=== PATIENT | female | born 1965 | race Caucasian/White ===

== ENCOUNTER 2020-10-18 19:39 | Emergency (ER) | payer OTHER ==
--- OUTSIDE RECORDS SUMMARY | 2020-10-18 19:42 | XMS REPORT | Continuity of Care Document ---
:1965 Author Organization [facility] t Address [address] [place] [address] Care Team Providers Name Role Phone Unavailable Unavailable Unavailable Payers Payer Name Policy Type Policy Number Effective Date Expiration Date S ource Problems This patient has no known problems. Allergies, Adverse Reactions, Alerts Allergy Allergy Status Severity Reaction(s) Onset Inactive Treating Comm ents Source Name Type Date Date Clinician [place] DA Active U 2008- [facility] ins 04-22 [place] 00:00: d 00 [facility] [place] Medications This patient has no known medications. Procedures This patient has no known procedures. Results This patient has no known results.
--- NOTE | 2020-10-18 20:56 | RAD REPORT ---
EXAM DESCRIPTION: Tony Single View10/18/2020 8:46 pm CLINICAL HISTORY: cough COMPARISON: 2009 FINDINGS: Mild bilateral pulmonary opacities. Heart is normal size. Scoliosis involves the spine IMPRESSION: Mild bilateral pulmonary opacities probably pneumonia
[2020-10-18] MEDS ORDERED: NA CHLORIDE 0.9% 1,000 ML ONE (21:02)
[2020-10-18 21:22] LABS: Absolute Lymphocytes (CBC) 1.7 K/uL (0.7-4.9); Basophils % 0.2 % (0-1.3); Hematocrit 37.8 % (36.0-45.0); Lymphocytes % 22.5 % (15.3-44.8); MPV 8.5 fL (7.6-11.3); RBC Red Blood Cell Count 4.52 M/uL (3.86-4.86)
[2020-10-18 21:45] LABS: Protime INR 1.03
[2020-10-18 21:49] LABS: ALT/SGPT 37 U/L (12-78); AST/SGOT 29 U/L (15-37); Albumin 2.9 g/dL (3.4-5.0); Alkaline Phosphatase 52 U/L (45-117); BUN Blood Urea Nitrogen 10 mg/dL (7-18); Bicarbonate 30 mmol/L (21-32); Bilirubin Direct 0.1 mg/dL (0-0.2); Bilirubin Total 0.5 mg/dL (0.2-1.0); Ferritin 281.4 ng/mL (8-388); Glucose Level 118 mg/dL (74-106); Lipase 113 U/L (73-393); Potassium 3.5 mmol/L (3.5-5.1); Protein, Total 6.9 g/dL (6.4-8.2); Sodium Level 138 mmol/L (136-145); Troponin (Emerg Dept Use Only) < 0.02 ng/mL (0.0-0.045)
--- NOTE | 2020-10-18 21:54 | EDPHYS ---
Physician Documentation [facility] Name: Jenni Dao Age: 55 yrs Sex: Female : 1965 Arrival Date: 10/18/2020 Time: 19:43 Bed 20 Private MD: ED Physician Mario Alberto Rosas HPI: 10/18 21:43 This 55 yrs old Female presents to ER via Ambulatory with complaints of kb Shortness Of Breath, Productive Cough, Covid+. 21:43 The patient has shortness of breath at rest. Onset: The symptoms/episode began/occurred kb 10 day(s) ago, and became worse today. Duration: The symptoms are continuous. The patient's shortness of breath is aggravated by nothing, is alleviated by nothing. Associated signs and symptoms: Pertinent positives: productive cough, fever. Severity of symptoms: At their worst the symptoms were moderate in the emergency department the symptoms are unchanged. The patient has not experienced similar symptoms in the past. The patient has not recently seen a physician. Pt states she started having cough, congestion, fever and shortness of breath 10 days ago, tested positive for covid 8 days ago. States symptoms were starting to get better, but then got worse yesterday. Historical: - Allergies: 20:09 PENICILLINS; em - PMHx: 20:09 Hypothyroidism; em - PSHx: 20:09 None; em - Immunization history:: Adult Immunizations up to date. - Social history:: Smoking status: Patient denies any tobacco usage or history of. ROS: 21:41 Constitutional: Negative for fever, chills, and weight loss, Neck: Negative for injury, kb pain, and swelling, Cardiovascular: Negative for chest pain, palpitations, and edema, Abdomen/GI: Negative for abdominal pain, nausea, vomiting, diarrhea, and constipation, Back: Negative for injury and pain, MS/Extremity: Negative for injury and deformity, Skin: Negative for injury, rash, and discoloration, Neuro: Negative for headache, weakness, numbness, tingling, and seizure. 21:41 Respiratory: Positive for cough, shortness of breath. Exam: 21:41 Constitutional: This is a well developed, well nourished patient who is awake, alert, kb and in no acute distress. Head/Face: Normocephalic, atraumatic. Chest/axilla: Normal chest wall appearance and motion. Nontender with no deformity. No lesions are appreciated. Cardiovascular: Regular rate and rhythm with a normal S1 and S2. No gallops, murmurs, or rubs. Normal PMI, no JVD. No pulse deficits. Respiratory: Lungs have equal breath sounds bilaterally, clear to auscultation and percussion. No rales, rhonchi or wheezes noted. No increased work of breathing, no retractions or nasal flaring. Abdomen/GI: Soft, non-tender, with normal bowel sounds. No distension or tympany. No guarding or rebound. No evidence of tenderness throughout. Skin: Warm, dry with normal turgor. Normal color with no rashes, no lesions, and no evidence of cellulitis. MS/ Extremity: Pulses equal, no cyanosis. Neurovascular intact. Full, normal range of motion. Neuro: Awake and alert, GCS 15, oriented to person, place, time, and situation. Cranial nerves II-XII grossly intact. Motor strength 5/5 in all extremities. Sensory grossly intact. Cerebellar exam normal. Normal gait. 21:52 ECG was reviewed by the Attending Physician. kb Vital Signs: 20:06 BP 134 / 66; Pulse 94; Resp 22; Temp 100.6; Pulse Ox 97% on R/A; Weight 95.25 kg; em Height 5 ft. 6 in. (167.64 cm); Pain 4/10; 21:30 BP 125 / 54; Pulse 90; Resp 18; Pulse Ox 95% on R/A; wh 22:15 BP 110 / 48; Pulse 84; Resp 18; Temp 98.3; Pulse Ox 97% on R/A; wh 20:06 Body Mass Index 33.89 (95.25 kg, 167.64 cm) em MDM: 20:24 Patient medically screened. kb 21:39 Data reviewed: vital signs, nurses notes. Data interpreted: Pulse oximetry: on room air kb is 97 %. Interpretation: normal. 21:52 Counseling: I had a detailed discussion with the patient and/or guardian regarding: the kb historical points, exam findings, and any diagnostic results supporting the discharge/admit diagnosis, lab results, radiology results, the need for outpatient follow up, a family practitioner, to return to the emergency department if symptoms worsen or persist or if there are any questions or concerns that arise at home. 12/15 20:25 Order name: Flu kb 10/18 20:25 Order name: Blood Culture Adult (2) kb 10/18 20:25 Order name: BMP kb 10/18 20:25 Order name: C-Reactive Protein kb 10/18 20:25 Order name: CBC with Diff kb 10/18 20:25 Order name: Ferritin kb 10/18 20:25 Order name: Lactate; Complete Time: 21:46 kb 10/18 20:25 Order name: LFT's; Complete Time: 21:51 kb 10/18 20:25 Order name: Lipase; Complete Time: 21:51 kb 10/18 20:25 Order name: Procalcitonin kb 10/18 20:25 Order name: PT-INR; Complete Time: 22:00 kb 10/18 20:25 Order name: Ptt, Activated; Complete Time: 22:00 kb 10/18 20:25 Order name: Troponin (emerg Dept Use Only); Complete Time: 21:51 kb 10/18 20:25 Order name: EKG; Complete Time: 20:27 kb 10/18 20:25 Order name: Cardiac monitoring; Complete Time: 21:02 kb 10/18 20:25 Order name: Droplet/Contact Precautions; Complete Time: 21:02 kb 10/18 20:25 Order name: EKG - Nurse/Tech; Complete Time: 21:02 kb 10/18 20:25 Order name: IV Start; Complete Time: 21:11 kb 10/18 20:26 Order name: Influenza Screen (A ; Complete Time: 21:40 EDMS 10/18 20:26 Order name: Blood Culture EDVA 10/18 20:26 Order name: Basic Metabolic Panel; Complete Time: 21:51 EDMS 10/18 20:26 Order name: C-Reactive Protein; Complete Time: 21:51 EDMS 10/18 20:26 Order name: CBC with Automated Diff; Complete Time: 21:29 EDMS 10/18 20:26 Order name: Ferritin; Complete Time: 21:51 EDMS 10/18 20:45 Order name: Chest Single View; Complete Time: 21:04 EDMS 10/18 20:25 Order name: Labs collected and sent; Complete Time: 21:11 kb 10/18 20:25 Order name: O2 Per Protocol; Complete Time: 21:02 kb 10/18 20:25 Order name: O2 Sat Monitoring; Complete Time: 21:02 kb EC:52 Rate is 88 beats/min. Rhythm is regular. QRS [place] is Normal. VA interval is normal at kb 148 msec. QRS interval is normal at 72 msec. QT interval is normal at 348 msec. Administered Medications: 21:53 Drug: Tylenol 650 mg Route: PO; 22:22 Follow up: Response: No adverse reaction; Temperature is decreased 22:17 Drug: Zithromax 500 mg Route: PO; 22:21 Follow up: Response: No adverse reaction 22:18 Drug: SOLU-Medrol 125 mg Route: IVP; Site: right antecubital; 22:22 Follow up: Response: No adverse reaction Disposition: 10/19 03:15 Co-signature as Attending Physician, aMrio Alberto Rosas MD I agree with the assessment and tw4 plan of care. Disposition: 10/18/20 21:53 Discharged to Home. Impression: Coronavirus infection, unspecified, Pneumonia, unspecified organism. - Condition is Stable. - Discharge Instructions: Community-Acquired Pneumonia, Adult, Rzyc-ot-Adar, COVID-19. - Prescriptions for Prednisone 20 mg Oral Tablet - take 1 tablet by ORAL route once daily for 5 days; 5 tablet. Albuterol Sulfate 90 mcg/actuation - inhale 1-2 puff by INHALATION route every 4-6 hours; 1 Inhaler. Zithromax 500 mg Oral Tablet - take 1 tablet by ORAL route once daily for 5 days; 5 tablet. - Medication Reconciliation Form, Thank You Letter, Antibiotic Education, Prescription Opioid Use form. - Follow up: Emergency Department; When: As needed; Reason: Worsening of condition. Follow up: Private Physician; When: 2 - 3 days; Reason: Recheck today's complaints, Continuance of care, Re-evaluation by your physician. Signatures: Dispatcher [employer] Matilde Barajas, BRADLEY YAN-Elpidio Pisano, Rianna Merida RN, Terrence, MD MD tw4 Corrections: (The following items were deleted from the chart) 10/18 20:45 20:11 Chest Pa And Lat (2 Views)+RAD.[email or web address] ordered. [facility] ED[facility] 22:01 20:25 Urine Dipstick-Ancillary ordered. kb 22:25 21:53 10/18/2020 21:53 Discharged to Home. Impression: Coronavirus infection, wh unspecified; Pneumonia, unspecified organism. Condition is Stable. Forms are Medication Reconciliation Form, Thank You Letter, Antibiotic Education, Prescription Opioid Use. Follow up: Emergency Department; When: As needed; Reason: Worsening of condition. Follow up: Private Physician; When: 2 - 3 days; Reason: Recheck today's complaints, Continuance of care, Re-evaluation by your physician. kb
--- NOTE | 2020-10-18 21:54 | ER ---
Nurse's Notes [facility] Name: Jenni Dao Age: 55 yrs Sex: Female : 1965 Arrival Date: 10/18/2020 Time: 19:43 Bed 20 Private MD: Diagnosis: Coronavirus infection, unspecified;Pneumonia, unspecified organism Presentation: 10/18 20:06 Chief complaint: Patient states: had cough, N/V fever for 10 days, tested pos. for em covid 8 days ago, symptoms got worse today, reports chest tightness, reports SOB and coughing spells. Coronavirus screen: Client reports previous positive COVID test result. Date of collection: October 10, 2020. Ebola Screen: Patient negative for fever greater than or equal to 101.5 degrees Fahrenheit, and additional compatible Ebola Virus Disease symptoms Patient denies exposure to infectious person. Patient denies travel to an Ebola-affected area in the 21 days before illness onset. No symptoms or risks identified at this time. Initial Sepsis Screen: Does the patient meet any 2 criteria? HR > 90 bpm. No. Patient's initial sepsis screen is negative. Does the patient have a suspected source of infection? No. Patient's initial sepsis screen is negative. Risk Assessment: Do you want to hurt yourself or someone else? Patient reports no desire to harm self or others. Onset of symptoms was October 18, 2020. 20:06 Method Of Arrival: Ambulatory em 20:06 Acuity: MARK 3 em 20:31 Initial Sepsis Screen: Does the patient meet any 2 criteria? RR > 20 per min. HR > 90 wh bpm. Does the patient have a suspected source of infection? Yes: Other: Covid. Triage Assessment: 20:30 Respiratory: Onset: The symptoms/episode began/occurred gradually, the patient reports wh symptoms have resolved. Historical: - Allergies: 20:09 PENICILLINS; em - PMHx: 20:09 Hypothyroidism; em - PSHx: 20:09 None; em - Immunization history:: Adult Immunizations up to date. - Social history:: Smoking status: Patient denies any tobacco usage or history of. Screenin:30 Abuse screen: Denies threats or abuse. Denies injuries from another. Nutritional wh screening: No deficits noted. Tuberculosis screening: No symptoms or risk factors identified. Fall Risk None identified. Assessment: 20:20 General: Appears in no apparent distress. Behavior is calm, cooperative, appropriate wh for age. Pain: Denies pain. Neuro: Level of Consciousness is awake, alert, obeys commands, Oriented to person, place, time, situation, Appropriate for age. Cardiovascular: Heart tones S1 S2 Rhythm is sinus rhythm. Respiratory: Reports shortness of breath cough that is Airway is patent Respiratory effort is even, unlabored, Respiratory pattern is regular, symmetrical, Breath sounds are clear bilaterally. GI: Abdomen is flat, non-distended. : No signs and/or symptoms were reported regarding the genitourinary system. EENT: No signs and/or symptoms were reported regarding the EENT system. Derm: Skin is intact, is healthy with good turgor, Skin is pink, warm \T\ dry. normal. Musculoskeletal: Circulation, motion, and sensation intact. 21:30 Reassessment: Patient appears in no apparent distress at this time. No changes from previously documented assessment. Patient and/or family updated on plan of care and expected duration. Pain level reassessed. Patient is alert, oriented x 3, equal unlabored respirations, skin warm/dry/pink. 22:15 Reassessment: Patient appears in no apparent distress at this time. Patient and/or family updated on plan of care and expected duration. Pain level reassessed. Patient is alert, oriented x 3, equal unlabored respirations, skin warm/dry/pink. Vital Signs: 20:06 BP 134 / 66; Pulse 94; Resp 22; Temp 100.6; Pulse Ox 97% on R/A; Weight 95.25 kg; em Height 5 ft. 6 in. (167.64 cm); Pain 4/10; 21:30 BP 125 / 54; Pulse 90; Resp 18; Pulse Ox 95% on R/A; wh 22:15 BP 110 / 48; Pulse 84; Resp 18; Temp 98.3; Pulse Ox 97% on R/A; wh 20:06 Body Mass Index 33.89 (95.25 kg, 167.64 cm) em ED Course: 19:43 Patient arrived in ED. bp1 20:09 Triage completed. em 20:09 Arm band placed on. em 20:23 Rianna Devlin is Primary Nurse. wh 20:24 Matilde Muñiz FNP-C is PHCP. kb 20:24 Mario Alberto Rosas MD is Attending Physician. kb 20:47 Chest Single View In Process Unspecified. EDMS 21:00 Inserted saline lock: 20 gauge in right antecubital area, using aseptic technique. Blood collected. 21:01 EKG done, by ED staff, reviewed by Matilde HUERTA. Patient maintains SpO2 jp3 saturation greater than 95% on room air. 21:02 Placed in gown. Bed in low position. Call light in reach. Side rails up X2. Verbal jp3 reassurance given. potline monitor on. Pulse ox on. NIBP on. 22:20 No provider procedures requiring assistance completed. IV discontinued, intact, bleeding controlled, No redness/swelling at site. Administered Medications: 21:53 Drug: Tylenol 650 mg Route: PO; 22:22 Follow up: Response: No adverse reaction; Temperature is decreased 22:17 Drug: Zithromax 500 mg Route: PO; 22:21 Follow up: Response: No adverse reaction 22:18 Drug: SOLU-Medrol 125 mg Route: IVP; Site: right antecubital; 22:22 Follow up: Response: No adverse reaction Outcome: 21:53 Discharge ordered by . kb 22:20 Discharged to home ambulatory, with family. 22:20 Condition: stable 22:20 Discharge instructions given to patient, family, Instructed on discharge instructions, follow up and referral plans. medication usage, POC Demonstrated understanding of instructions, follow-up care, medications, POC Prescriptions given X 3. 22:25 Patient left the ED. Signatures: Dispatcher [employer] EDAL Matilde Muñiz FNP-C FNP-Ckb Munoz, Edgar, RN Rianna Merida He Marroquin jp3 Daiana Jansen bp1
[2020-10-18] MEDS ORDERED: ACETAMINOPHEN 325 MG TABLET ONE (21:57)
[2020-10-18] MEDS ORDERED: METHYLPREDNISOLONE 125 MG INJ ONE (22:23)
[2020-10-18] MEDS ORDERED: AZITHROMYCIN 250 MG TAB ONE (22:23)
--- NOTE | 2020-10-19 19:15 | EKG ---
Test Date: 2020-10-18 Test Time: 20:57:01 Computer Operations Specialist: CATERINA MEASUREMENT RESULTS: Intervals: Rate: 88 MA: 148 QRSD: 72 QT: 348 QTc: 421 [place]: P: 56 MA: 148 QRS: 58 T: 58 INTERPRETIVE STATEMENTS: Normal sinus rhythm Normal ECG No previous ECG available for comparison Electronically Signed On 10-19-20 19:12:48 CHEMICAL PROCESSING LABORER by Alvino Vernon
[2020-10-20 21:29] VITALS: BP 110/48; TEMP 98.3; O2SAT 97
== END 2020-10-18 22:25 | disposition home or self-care (01) ==
LOC: ER 19:39
DX: U07.1 COVID-19 (principal); J18.9 Pneumonia, unspecified organism; Z88.0 Allergy status to penicillin
CPT/HCPCS: 93005; 87040 ×2; 85025; 80048; 36415; 85610; 80076; 83605; 85730; 84484; 82728; 83690; 84145; 86140; 87804 ×2; 71045; 96374; 99285; J7030; J2930